=== PATIENT | female | born 1960 | race American Indian/Alaskan Native ===

== ENCOUNTER 2018-02-18 20:04 | Inpatient (IN) | payer OTHER ==
[2018-02-18 20:35] LABS: BASO % 0.3 % (0.0-2.0); EOS # 0.2 K/uL (0.0-0.7); EOS % 2.1 % (0.0-4.0); HEMOGLOBIN 11.7 g/dL (11.0-16.0); LYMPH # 3.2 K/uL (1.0-4.3); LYMPH % 41.7 % (20.0-40.0); MEAN CELL VOLUME 83.9 fL (81.0-99.0); MEAN CORPUSCULAR HEMOGLOBIN 26.9 pg (27.0-31.0); MEAN CORPUSCULAR HGB CONC 32.1 g/dL (33.0-37.0); MEAN PLATELET VOLUME 7.7 fL (7.2-11.7); MONO # 0.6 K/uL (0.0-0.8); NEUT # 3.7 K/uL (1.8-7.0); NEUT % 47.9 % (50.0-75.0); RBC 4.35 Mil/uL (3.80-5.20); RED CELL DISTRIBUTION WIDTH 13.4 % (11.5-14.5); WHITE BLOOD COUNT 7.7 K/uL (4.8-10.8)
[2018-02-18 20:47] LABS: ALB/GLOB RATIO 1.3 (1.0-2.1); ALBUMIN 4.1 g/dL (3.5-5.0); ALT/SGPT 28 U/L (9-52); AST/SGOT 33 U/L (14-36); BLOOD UREA NITROGEN 14 mg/dL (7-17); CALCIUM 9.3 mg/dl (8.6-10.4); GFR NON-AFRICAN AMERICAN > 60
[2018-02-18 20:52] LABS: SQUAMOUS EPITHIAL 18 /hpf (0-5); URINE BACTERIA RARE (<OCC); URINE BILIRUBIN NEGATIVE (NEGATIVE); URINE BLOOD 3+ (NEGATIVE); URINE CLARITY Hazy (Clear); URINE COLOR Yellow (YELLOW); URINE GLUCOSE (UA) NORMAL (Normal); URINE LEUKOCYTE ESTERASE 1+ Leu/uL (Negative); URINE PROTEIN NEGATIVE (NEGATIVE)
[2018-02-18 20:58] LABS: BARBITURATES, UR NEGATIVE (NEGATIVE); BENZODIAZEPINES, UR NEGATIVE (NEGATIVE); PHENCYCLIDINE, UR NEGATIVE (NEGATIVE)
[2018-02-18 21:05] LABS: OPIATES, UR POSITIVE (NEGATIVE)
--- NOTE | 2018-02-18 21:08 | C.PDOC ---
History Of Present Illness 57 yo female w/PMHx of heroin, cocaine dependance comes in request detox. Pt reports, last dose was 2 -3 hours ago. Otherwise, pt denies suicidal or homocidal ideation, denies any active physical complaints. <Alyse Connelly - Last Filed: 02/18/18 21:03> History Per: Patient <Alyse Connelly - Last Filed: 02/18/18 21:03> <Uche Alves - Last Filed: 02/18/18 22:19> Time Seen by Provider: 02/18/18 20:17 Chief Complaint (Nursing): Substance Abuse Past Medical History Reviewed: Historical Data, Nursing Documentation, Vital Signs Vital Signs: Last Vital Signs Temp 97.6 F 02/18/18 20:11 Pulse 96 H 02/18/18 20:11 Resp 20 02/18/18 20:11 BP 134/89 02/18/18 20:11 Pulse Ox 98 02/18/18 20:11 - Medical History PMH: Depression Family History: States: No Known Family Hx - Social History Hx Tobacco Use: Yes Hx Alcohol Use: Yes Hx Substance Use: Yes - Immunization History Hx Tetanus Toxoid Vaccination: No Hx Influenza Vaccination: No Hx Pneumococcal Vaccination: No <Alyse Connelly - Last Filed: 02/18/18 21:03> Vital Signs: Last Vital Signs Temp 97.6 F 02/18/18 20:11 Pulse 96 H 02/18/18 20:11 Resp 20 02/18/18 20:11 BP 134/89 02/18/18 20:11 Pulse Ox 98 02/18/18 21:44 <Uche Alves - Last Filed: 02/18/18 22:19> Review Of Systems Except As Marked, All Systems Reviewed And Found Negative. Constitutional: Negative for: Fever, Chills Eyes: Negative for: Vision Change ENT: Negative for: Throat Pain, Throat Swelling Cardiovascular: Negative for: Chest Pain, Palpitations Respiratory: Negative for: Cough, Shortness of Breath, Wheezing Gastrointestinal: Negative for: Nausea, Vomiting, Abdominal Pain, Diarrhea Genitourinary: Negative for: Dysuria Musculoskeletal: Negative for: Neck Pain Skin: Negative for: Rash Neurological: Negative for: Weakness, Numbness, Altered Mental Status, Headache Psych: Positive for: Depression <Alyse Connelly - Last Filed: 02/18/18 21:03> Physical Exam - Physical Exam Appears: Well, Non-toxic, No Acute Distress Skin: Normal Color, Warm, Dry, No Rash Head: Atraumatic, Normacephalic Eye(s): bilateral: PERRL Nose: No Flaring, No Discharge Oral Mucosa: Moist Tongue: Normal Appearing Lips: Normal Appearing Throat: No Drooling Neck: Trachea Midline, No Midline Cervical Tenderness, No Paracervical Tenderness, No Step Off Deformity, Supple Cardiovascular: Rhythm Regular, No Murmur, No JVD Respiratory: No Decreased Breath Sounds, No Accessory Muscle Use, No Rales, No Stridor, No Wheezing Gastrointestinal/Abdominal: Soft, No Tenderness, No Distention, No Guarding Back: No CVA Tenderness Extremity: Normal ROM, No Deformity, No Swelling Neurological/Psych: Oriented x3, Normal Speech <Alyse Connelly - Last Filed: 02/18/18 21:03> ED Course And Treatment - Laboratory Results Result Diagrams: 02/18/18 20:29 02/18/18 20:29 Lab Interpretation: No Acute Changes O2 Sat by Pulse Oximetry: 98 Pulse Ox Interpretation: Normal Progress Note: Pt remained stable during the ED evaluation. AAO#3, not in any apparent distress. Neurologicaly intact. Blood work review, appears without acute abnormalities. UA (+) WBC, (+) RBC c/w UTI. Ucx- penidng. Pt empirically tx with Macrobid. Pt is medically cleared for PES evaluation. case discussed with , sign out: PES eval, dispo- pending. <Alyse Connelly - Last Filed: 02/18/18 21:03> - Laboratory Results Result Diagrams: 02/18/18 20:29 02/18/18 20:29 <Uche Alves - Last Filed: 02/18/18 22:19> Disposition - Disposition Disposition Time: 21:36 <Alyse Connelly - Last Filed: 02/18/18 21:03> <Uche Alves - Last Filed: 02/18/18 22:19> - Disposition Condition: STABLE Forms: [facility] ([place]) - Clinical Impression Clinical Impression: Drug dependence, UTI (urinary tract infection) Physician Patient Turnover Patient Signed Over To: Imm,Uche T Handoff Comments: LEAH teeal dispo <Alyse Connelly - Last Filed: 02/18/18 21:03> Disposition <Alyse Connelly - Last Filed: 02/18/18 21:03> Disposition Time: 21:36 <Uche Alves - Last Filed: 02/18/18 22:19> Clinical Impression: Drug dependence, UTI (urinary tract infection), Opioid use disorder, severe, dependence Disposition: HOSPITALIZED Condition: STABLE Stand Alone Forms: [facility] ([place])
[2018-02-19] MEDS ORDERED: Aluminum Hydroxide/Magnesium Hydroxide Susp (30 mL) PO PRN (12:28)
--- NOTE | 2018-02-19 16:31 | RAD ---
Date of service: 02/19/2018 HISTORY: rehab placement COMPARISON: No prior. TECHNIQUE: Chest PA and lateral FINDINGS: LUNGS: Hyperinflation, manifestations of COPD. No active pulmonary disease. PLEURA: No significant pleural effusion identified. No pneumothorax apparent. CARDIOVASCULAR: No atherosclerotic calcification present Normal. OSSEOUS STRUCTURES: No significant abnormalities. VISUALIZED UPPER ABDOMEN: Normal. OTHER FINDINGS: None. IMPRESSION: No active disease.
--- NOTE | 2018-02-19 16:55 | PCM.PSYCH ---
Initial Psychiatric Evaluation - Initial Psychiatric Evaluation Type of Admission: Voluntary Legal Status: Capacity Chief Complaint (in patient's own words): I need help for my substance use. History of Present Illness and Precipitating Events: Patient is a 57 years old, single, unemployed, on disability, female with history of depression in the past, diagnosed by PCP, was taking Paxil in the past, was admitted due to withdrawing from heroin and cocaine. Both her or drugs of choice. Opioids: Patient started using heroin at 13 years of age, increased gradually, was using 2-10 bags of heroin daily. Longest period of abstinence was 10 years from [id number]. Patient relapsed again 1 year ago. Currently she was taking 3-5 bags of heroin daily, sniffing. Last used yesterday. Patient has history of 2 previous detox at psychiatric hospital and has one rehabilitation at [facility]. Cocaine: She started using cocaine at 17 years of age, was using 2-10 cigarettes daily. Last used yesterday. Cannabis: Urine drug screen was also positive for cannabis, patient denied. Smoking 3-10 cigarettes daily and is requesting for nicotine patch. Patient was born in [place] and has 12th grade of education. Patient is not working for last 3-4 years and is on disability. 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 She is single and has 5 grown up children from 2 males. She lives with her daughter. Her height is 5 feet 8 and half inch and weight is 140 pounds. Patient wants to go to a dedicated intermodal truck driver rehabilitation after discharge from the hospital. Current Medications: Active Medications Generic Name Dose Route Start Last Admin Trade Name Freq PRN Reason Stop Dose Admin Al Hydrox/Mg Hydrox/Simethicone 30 ml 02/19/18 12:28 Maalox 30 Ml PO TID PRN Indigestion / Heartburn Aspirin 81 mg 02/19/18 10:00 02/19/18 09:49 Ecotrin PO 81 mg DAILY IRMA Administration Clonidine HCl 0.1 mg 02/19/18 01:18 02/19/18 08:07 Catapres PO 0.1 mg Q6 PRN Administration withdrawal symptoms Clonidine HCl 0.1 mg 02/19/18 12:28 Catapres PO Q8 PRN COWS Score More or Equal to 5 Dicyclomine HCl 10 mg 02/19/18 12:31 Bentyl PO Q6 PRN Abdominal Cramps Gabapentin 300 mg 02/19/18 18:00 Neurontin PO BID IRMA Ibuprofen 400 mg 02/19/18 12:30 02/19/18 13:48 Motrin Tab PO 400 mg Q6 PRN Administration Pain, moderate (4-7) Influenza Virus Vaccine 60 mcg 02/21/18 10:30 Fluzone Quad [id number] IM 02/21/18 10:31 .ONCE ONE Lisinopril 20 mg 02/19/18 10:00 02/19/18 09:50 Zestril PO 20 mg DAILY IRMA Administration Loperamide HCl 2 mg 02/19/18 12:29 Imodium PO Q8 PRN Diarrhea Methadone HCl 15 mg 02/20/18 10:00 Methadone PO 02/23/18 09:59 Q24H IRMA Taper Nicotine 1 patch 02/19/18 10:45 02/19/18 10:50 Nicoderm Cq TD 1 patch DAILY IRMA Administration Nitrofurantoin Macrocrystals 100 mg 02/19/18 12:45 02/19/18 13:25 Macrobid PO 02/23/18 23:59 100 mg Q12 IRMA Administration Protocol Ondansetron HCl 4 mg 02/19/18 12:28 Zofran Tab PO Q8 PRN Nausea/Vomiting Trazodone HCl 50 mg 02/19/18 01:17 Desyrel PO HS PRN Insomnia Past Psychiatric History - Past Psychiatric History Pertinent Medical Hx (Current Medical&Sleep Prob, Allergies): Allergies Allergy/AdvReac Type Severity Reaction Status Date / Time No Known Allergies Allergy Unverified 02/18/18 20:14 RX: No Known Home Med 02/18/18 Review of Systems - Psychiatric Psychiatric: As Per HPI, Anxiety Mental Status Examination - Personal Presentation Personal Presentation: Looks stated age - Affect Affect: Other (Appropriate) - Motor Activity Motor Activity: Calm - Reliability in Providing Information Reliability in Providing Information: Fair - Speech Speech: Organized - Mood Mood: Anxious - Formal Thought Process Formal Thought Process: No Impairment - Hallucinations/Delusions Hallucinations: Other (None reported) Delusions: Other - Obsessions/Compulsions Obsessions: None Compulsions: None - Cognitive Functions Orientation: Person, Place, Situation, Time Sensorium: Alert Abstract Thinking: Frederick Estimate of Intelligence: Average Judgement: Intact, as evidence by: Insight regarding need for hospitalization Memory: Recent intact, as evidence by: Ability to recall events of the day, Remote intact, as evidenced by: Ability to recall historical events - Risk Risk: Withdrawal, Diminished functioning - Strength & Assets Inventory Strength & Assets Inventory: Family support, Cooperative - Limitations Limitations: Other DSM 5 DX - DSM 5 DSM 5 Diagnosis: Opiate use disorder severe. Cocaine use disorder severe. Cannabis use disorder mild - Recommended/Plan of Treatment Treatment Recommendations and Plan of Treatment: Patient/staff education. Supportive therapy. CBT for relapse prevention. DC for abstinence. We'll start methadone taper for opiate withdrawal symptoms. Other when necessary medications. Patient wants to go to a dedicated intermodal truck driver rehabilitation for follow-up care after discharge from the hospital. Projected ELOS: 4-5 times - Smoking Cessation Smoking Cessation Initiated: Yes
--- NOTE | 2018-02-20 03:05 | PCM.BM ---
<Isela Whitfield - Last Filed: 02/20/18 03:03> Treatment Plan Problems - Problems identified on initial assessmt Opiate Dependence Date Initiated: 02/19/18 Time Initiated: 06:00 Assessment reference: NA Status: Active Treatment assets and liabiliti Patient Assests: ADL independent Patient Liabilities: substance abuse - Milieu Protocol Maintain good personal hygiene: daily Encourage regular showers, daily Remind patient to perform daily oral care, daily Assist patient to perform ADL's Maintain personal safety: every shift Educate patient to report safety concerns to staff, every shift Monitor environment for contraband/sharps Medication safety: Monitor for expected outcome, potential side effects: every shift, Assess barriers to learning: every shift, Assess readiness for medication education: every shift Milieu Narrative: Patient/staff education. Supportive therapy. CBT for relapse prevention. [place] for abstinence. We'll start methadone taper for opiate withdrawal symptoms. Other when necessary medications. Patient wants to go to a nursing home rehabilitation for follow-up care after discharge from the hospital. Discharge/Continuing Care - Treatment Team Participation Patient/Family/SO Statement: Patient/staff education. Supportive therapy. CBT for relapse prevention. [place] for abstinence. We'll start methadone taper for opiate withdrawal symptoms. Other when necessary medications. 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 <Lorna Chavez - Last Filed: 02/20/18 08:47> - Diagnosis (1) Opioid use disorder, severe, dependence Status: Acute Interventions: 02/20/18 08:47 * Assess 7x/week regarding severity of withdrawal * Educate regarding risks, benefits, side effects and alternatives of medications * Use Motivational Interviewing for abstinence * Use CBT for relapse prevention * Medication management for withdrawal symptoms * Encourage medication assisted treatment * <Itzel Berman - Last Filed: 02/21/18 14:17> Family Contact Family involvement: Famliy/SO not involved - Goals for Treatment Patient goals for treatment: Complete detox protocol and apply for sober living residence. Discharge/Continuing Care - Education Needs Education Needs: Patient Medication, Patient Diagnosis/Disease Process, Patient Coping Skills, Patient Anger Management skills, Patient Placement options, Patient Community resources - Discharge Discharge Criteria: No longer exhibiting s/s of withdrawal, Reduction of target symptoms Discharge to:: Substance Abuse Rehab - Treatment Team Participation Patient/Family/SO Statement: 02/21/18 14:17 "I wanna try [facility]...I've heard good things about it ..." Discussed with Family/SO: No Was Patient/Family/SO present at Treatment Team Meeting: Yes
--- NOTE | 2018-02-20 08:47 | PCM.PYCHPN ---
Psychiatric Progress Note - Psychiatric Progress Note Patient seen today, length of contact: 16 min Patient Chief Complaint: "Not well" Problems Identified/Issues Discussed: The pt is seen, chart reviewed, case discussed with staff. The pt is compliant with medications and reports no side-effects. Symptoms are improving but needs more time to stabilize. Pt attends groups and activities. Support given, psycho-education provided. After care discussed. Medication Change: Yes (detox changes daily) Medical Record Reviewed: Yes Mental Status Examination - Cognitive Function Orientation: Person, Place, Situation, Time Memory: Intact Attention: WNL Concentration: Poor Association: WNL Fund of Knowledge: WNL - Mood Mood: Anxious - Affect Affect: Constricted - Speech Speech: Appropriate - Formal Thought Process Formal Thought Process: No Impairment - Suicidal Ideation Suicidal Ideation: No - Homicidal Ideation Homicidal Ideation: No Goal/Treatment Plan - Goal/Treatment Plan Need for Continued Stay: Discharge may exacerbated symptoms, Severe functional impairment Progress Toward Problem(s) and Goals/Treatment Plan: Continue medications Support and psychoeducation daily Attend groups and activities daily After care planning by counselors AL and CBT Refer to rehab or IOP, consider MAT
[2018-02-20] MEDS ORDERED: Magnesium Hydroxide Susp 30 ml UD PO ONE ×2 (11:23→17:27)
[2018-02-21] MEDS ORDERED: Influenza Vaccine 60 MCG/0.5 ML SYR (3 yr & up) IM ONE (10:30)
--- NOTE | 2018-02-21 13:45 | PCM.PYCHPN ---
Psychiatric Progress Note - Psychiatric Progress Note Patient seen today, length of contact: 16 min Patient Chief Complaint: "Better today" Problems Identified/Issues Discussed: The pt is seen, chart reviewed, case discussed with staff. Support and psychoeducation given, CBT and AK used briefly No new symptoms reported, improving slowly and needs more time No SEs from medications, risks discussed. After care discussed - will leave very early in AM bc a friend will drive to rehab Medication Change: Yes (detox changes daily) Medical Record Reviewed: Yes Mental Status Examination - Cognitive Function Orientation: Person, Place, Situation, Time Memory: Intact Attention: WNL Concentration: Poor Association: WNL Fund of Knowledge: WNL - Mood Mood: Anxious - Affect Affect: Constricted - Speech Speech: Appropriate - Formal Thought Process Formal Thought Process: No Impairment - Suicidal Ideation Suicidal Ideation: No - Homicidal Ideation Homicidal Ideation: No Goal/Treatment Plan - Goal/Treatment Plan Need for Continued Stay: Discharge may exacerbated symptoms, Severe functional impairment Progress Toward Problem(s) and Goals/Treatment Plan: Continue medications Support and psychoeducation daily Attend groups and activities daily After care planning by counselors AK and CBT Referred to Garry Page in [facility] Estimated Date of D/C: 02/22/18
[2018-02-21 20:27] VITALS: O2SAT 97
--- NOTE | 2018-02-22 08:50 | PCM.PYCHDC ---
Mental Status Examination - Mental Status Examination Orientation: Person, Place, Situation, Time Memory: Intact Mood: Anxious Affect: Broad Speech: Appropriate Attention: WNL Concentration: WNL Association: WNL Fund of Knowledge: WNL Formal Thought Process: No Impairment Suicidal Ideation: No Current Homicidal Ideation?: No Discharge Summary - Discharge Note Reason for Hospitalization: opioid detox Consultations:: List each consultation separately and include: 1. Reason for request. 2. Findings. 3. Follow-up Summary of Hospital Course include:: 1. Description of specific treatment plan utilized for patients during their course of treatmen. 2. Summarize the time- course for resolution of acute symptoms and/or regressed behaviors. 3. Describe issues identified and worked on during hospitalization. 4. Describe medication utilized. 5. Describe medical problems identified and treated. 6. Reassessment of suicide risk Summary of Hospital Course: Hospital course: The pt was admitted and started on treatment with psychotherapy, support, psychoeducation and medications. [place] and CBT used. The pt attended groups and activities, as well as milieu therapy. All the risks and benefits of medications are discussed and the patient understood and agreed. The pt improved with the treatments provided. After care discussed with the patient. She went to [facility] rehab in [place]. - Final Diagnosis (DSM 5) Condition upon Discharge: STABLE DSM 5: Opiate use disorder severe. Cocaine use disorder severe. Cannabis use disorder mild Disposition: REHAB FACILITY/REHAB UNIT Follow-up Treatment Plan: Continue medications Support and psychoeducation daily Attend groups and activities daily After care planning by counselors [place] and CBT Referred to Chucky Page in [facility] Prescriptions/Medication Reconciliation: Aspirin [Ecotrin] 81 mg PO DAILY #30 tabec Escitalopram [Lexapro] 5 mg PO DAILY #30 tab Gabapentin [Neurontin] 300 mg PO BID #60 cap Lisinopril [Zestril] 20 mg PO DAILY #30 tab Nitrofurantoin Macrocrystals [Macrobid] 100 mg PO Q12 #10 cap traZODone [Desyrel] 50 mg PO HS PRN #30 tab PRN Reason: Insomnia
[2018-02-22 10:57] VITALS: BP 148/91; PULSE 89; RESP 19; TEMP 98.3
== END 2018-02-22 07:30 | disposition home or self-care (01) | DRG 772 ==
LOC: C.ER 20:04 → C.7D 22:18
PROC: HZ2ZZZZ Detoxification Services for Substance Abuse Treatment (ICD-10-PCS; principal; 2018-02-18)
PROC: HZ59ZZZ Individual Psychotherapy for Substance Abuse Treatment, Supportive (ICD-10-PCS; 2018-02-18)
PROC: HZ81ZZZ Medication Management for Substance Abuse Treatment, Methadone Maintenance (ICD-10-PCS; 2018-02-18)
PROC: HZ80ZZZ Medication Management for Substance Abuse Treatment, Nicotine Replacement (ICD-10-PCS; 2018-02-18)
DX: F11.20 Opioid dependence, uncomplicated (principal); F14.20 Cocaine dependence, uncomplicated; N39.0 Urinary tract infection, site not specified; F12.90 Cannabis use, unspecified, uncomplicated; F17.210 Nicotine dependence, cigarettes, uncomplicated